=== PATIENT | male | born 1985 | race Caucasian/White ===

== ENCOUNTER 2018-11-12 19:27 | Inpatient (IN) | payer SELFPAY ==
[2018-11-12] MEDS ORDERED: NA CHLORIDE 0.9% 2,000 ML ONE (19:28)
[2018-11-12] MEDS ORDERED: RSI MEDICATION KIT IV ONE (19:28)
[2018-11-12 19:42] LABS: Hematocrit 38.1 % (39.6-49.0); MPV 6.7 fL (7.6-11.3); RBC Red Blood Cell Count 3.91 M/uL (4.33-5.43)
[2018-11-12 19:51] LABS: Absolute Lymphocytes (CBC) 1.8 K/uL (0.7-4.9); Absolute Neutrophil 3.5 K/uL (1.8-8.0); Basophils % 0.6 % (0-1.3); Eosinophils % 2.4 % (0-4.4); Lymphocytes % 27.5 % (15.3-44.8); Monocytes % 15.4 % (3.3-12.3)
[2018-11-12 19:56] LABS: Potassium 3.7 mmol/L (3.5-5.1)
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
[2018-11-12] MEDS ORDERED: TETANUS & DIPHTHERIA TOX,ADULT 0.5 ML VIAL ONE (20:27)
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
[2018-11-12] MEDS ORDERED: MORPHINE 4 MG/ML SYR ONE (21:25)
[2018-11-12] MEDS ORDERED: CEFAZOLIN 2GM (PREMIX IV) 2 GM/50 ML BAG ONE (22:03)
[2018-11-12] MEDS: NA CHLORIDE 0.9% 1,000 ML IV SCH (22:42)
[2018-11-12] MEDS ORDERED: ACETAMINOPHEN 500 MG TAB PO PRN (22:42)
[2018-11-12] MEDS ORDERED: ONDANSETRON 4 MG/2 ML VIAL IV PRN (22:42)
[2018-11-12 23:46] VITALS: BMI 21.1
[2018-11-13] MEDS: MORPHINE 4 MG/ML SYR IV PRN ×5 (00:18→21:18)
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
[2018-11-13 05:44] LABS: Absolute Monocytes 1.2 K/uL (0.1-1.3); Absolute Neutrophil 9.1 K/uL (1.8-8.0); Basophils % 0.3 % (0-1.3); Eosinophils % 0.2 % (0-4.4); Hematocrit 37.3 % (39.6-49.0); Lymphocytes % 9.1 % (15.3-44.8); MPV 6.9 fL (7.6-11.3); Monocytes % 10.3 % (3.3-12.3)
[2018-11-13 05:59] LABS: BUN Blood Urea Nitrogen 15 mg/dL (7-18); Bicarbonate 25 mmol/L (21-32); Glucose Level 99 mg/dL (74-106); Potassium 3.9 mmol/L (3.5-5.1); Sodium Level 135 mmol/L (136-145)
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
[2018-11-13] MEDS ORDERED: INFLUENZA VACCINE (for 3y+) 0.5 ML DOSE IMVAC ONE (08:00)
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
[2018-11-13] MEDS: NA CHLORIDE 0.9% 1,000 ML IV SCH ×2 (12:49→18:42)
[2018-11-14] MEDS: NA CHLORIDE 0.9% 1,000 ML IV SCH ×3 (01:45→22:07)
[2018-11-14] MEDS: MORPHINE 4 MG/ML SYR IV PRN ×3 (09:21→23:30)
--- NOTE | 2018-11-14 12:38 | RAD REPORT ---
EXAM DESCRIPTION: RAD - Chest Single View - 11/14/2018 12:28 pm CLINICAL HISTORY: chest tube/pneumothorax Chest pain. COMPARISON: Chest Single View dated 11/13/2018; Chest Single View dated 11/12/2018; Chest Single Vie w dated 11/12/2018; CHEST PA AND LAT 2 VIEW dated 10/25/2015 FINDINGS: Portable technique limits examination quality. Left-sided chest tube remains in place. No measurable pneumothorax is present. The lungs are grossly clear. The heart is normal in size.
--- NOTE | 2018-11-14 13:37 | RAD REPORT ---
EXAM DESCRIPTION: RAD - Chest Single View - 11/14/2018 1:32 pm CLINICAL HISTORY: s/p chest tube removal Chest pain. COMPARISON: Chest Single View dated 11/14/2018; Chest Single View dated 11/13/2018; Chest Single Vie w dated 11/12/2018; Chest Single View dated 11/12/2018 FINDINGS: Portable technique limits examination quality. The left chest tube has been removed. No measurable pneumothorax is seen. The heart is normal in size . No displaced fractures. IMPRESSION: No measurable pneumothorax.
--- NOTE | 2018-11-14 15:40 | RAD REPORT ---
[facility] 3[facility]15 pm CLINICAL HISTORY: Chest pain COMPARISON: November 14 FINDINGS: Area of subsegmental axis present within the left lung. A pneumothorax is not seen. The lungs appear clear of acute infiltrate. The heart is normal size
[2018-11-14 18:31] LABS: Barbiturates NEGATIVE (NEGATIVE); Benzodiazepines POSITIVE (NEGATIVE); Cocaine NEGATIVE (NEGATIVE); METHAMPHETAM NEGATIVE (NEGATIVE); Methadone NEGATIVE (NEGATIVE); Opiates POSITIVE (NEGATIVE); Phencyclidine NEGATIVE (NEGATIVE); THC Cannibis NEGATIVE (NEGATIVE)
[2018-11-15] MEDS: NA CHLORIDE 0.9% 1,000 ML IV SCH (07:05)
[2018-11-15 08:24] VITALS: O2SAT 95
--- NOTE | 2018-11-15 08:43 | RAD REPORT ---
EXAM DESCRIPTION: [facility] Single View11/15/2018 8:10 am CLINICAL HISTORY: Chest pain COMPARISON: November 22, 2018 FINDINGS: The lungs appear clear of acute infiltrate. The heart is normal size. A pneumothorax is n ot seen IMPRESSION: No acute abnormalities displayed
[2018-11-15] MEDS: MORPHINE 4 MG/ML SYR IV PRN (09:07)
[2018-11-15 13:29] VITALS: BP 114/63; TEMP 98.2
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
== END 2018-11-15 13:01 | disposition left against medical advice (07) | DRG 581 ==
LOC: ER 19:27 → ERHOLD 21:26 → 2ND 22:19
PROVIDERS: ADMIT Surgery; ATTEND Surgery
PROC: 0JQ80ZZ Repair Abdomen Subcutaneous Tissue and Fascia, Open Approach (ICD-10-PCS; principal; 2018-11-12)
PROC: 0JQF0ZZ Repair Left Upper Arm Subcutaneous Tissue and Fascia, Open Approach (ICD-10-PCS; 2018-11-12)
PROC: 0W9B00Z Drainage of Left Pleural Cavity with Drainage Device, Open Approach (ICD-10-PCS; 2018-11-12)
DX: S21.112A Laceration without foreign body of left front wall of thorax without penetration into thoracic cavity, initial encounter (principal); S27.2XXA Traumatic hemopneumothorax, initial encounter; S27.9XXA Injury of unspecified intrathoracic organ, initial encounter; S41.012A Laceration without foreign body of left shoulder, initial encounter; S31.119A Laceration without foreign body of abdominal wall, unspecified quadrant without penetration into peritoneal cavity, initial encounter; X99.1XXA Assault by knife, initial encounter; Y93.9 Activity, unspecified; Y92.9 Unspecified place or not applicable
CPT/HCPCS: 36415; 71045; 71260; 74177; 80048; 80307; 85025; 86850; 86900; 86901; 90714; 99291; J0690; J7030; Q9967

== ENCOUNTER 2019-01-09 17:48 | Emergency (ER) | payer SELFPAY ==
[2019-01-09 19:12] LABS: Absolute Lymphocytes (CBC) 2.2 K/uL (0.7-4.9); Absolute Monocytes 0.9 K/uL (0.1-1.3); Absolute Neutrophil 10.1 K/uL (1.8-8.0); Basophils % 0.4 % (0-1.3); Eosinophils % 0.3 % (0-4.4); Hematocrit 47.9 % (39.6-49.0); Lymphocytes % 16.3 % (15.3-44.8); MPV 6.7 fL (7.6-11.3); Monocytes % 6.8 % (3.3-12.3); RBC Red Blood Cell Count 5.02 M/uL (4.33-5.43)
[2019-01-09 19:13] LABS: Barbiturates NEGATIVE (NEGATIVE); Benzodiazepines NEGATIVE (NEGATIVE); Cocaine NEGATIVE (NEGATIVE); METHAMPHETAM NEGATIVE (NEGATIVE); Methadone NEGATIVE (NEGATIVE); Opiates NEGATIVE (NEGATIVE); Phencyclidine NEGATIVE (NEGATIVE); THC Cannibis NEGATIVE (NEGATIVE)
[2019-01-09 19:16] LABS: Protime INR 1.03
[2019-01-09 19:20] LABS: ALT/SGPT 25 U/L (12-78); AST/SGOT 24 U/L (15-37); Albumin 4.4 g/dL (3.4-5.0); Alkaline Phosphatase 73 U/L (45-117); BUN Blood Urea Nitrogen 20 mg/dL (7-18); Bicarbonate 27 mmol/L (21-32); Bilirubin Direct 0.1 mg/dL (0-0.2); Bilirubin Total 0.4 mg/dL (0.2-1.0); Glucose Level 102 mg/dL (74-106); Potassium 3.9 mmol/L (3.5-5.1); Protein, Total 8.2 g/dL (6.4-8.2); Sodium Level 138 mmol/L (136-145)
[2019-01-09 19:40] LABS: Urine Blood TRACE (NEG); Urine Glucose NEGATIVE (NEG); Urine Protein 1+ (NEG); Urine Specific Gravity 1.025 (1.005-1.030)
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
== END 2019-01-09 20:22 | disposition home or self-care (01) ==
LOC: ER 17:48
DX: F43.21 Adjustment disorder with depressed mood (principal); F17.210 Nicotine dependence, cigarettes, uncomplicated
CPT/HCPCS: 36415; 80048; 80076; 80307; 80320; 80329; 81003; 85025; 85610; 85730; 99283

== ENCOUNTER 2019-04-11 13:20 | Emergency (ER) | payer SELFPAY ==
[2019-04-11] MEDS ORDERED: NA CHLORIDE 0.9% 0 ML ONE (15:39)
[2019-04-11] MEDS ORDERED: ONDANSETRON 4 MG/2 ML VIAL ONE (15:39)
--- NOTE | 2019-04-11 15:43 | ER ---
Nurse's Notes [facility] Name: Ky Casarez Age: 33 yrs Sex: Male : 1985 Arrival Date: 04/11/2019 Time: 13:23 Bed 11 Private MD: Diagnosis: Vomiting;Headache;Unspecified injury of head Presentation: 04/11 13:42 Presenting complaint: Patient states: cutting down a tree 3 days ago when it fell on ss his head. Pt was seen at [facility] yesterday and had a negative head CT. Pt c/o headache, N/V x 3 days that has not gotten any better. Transition of care: patient was not received from another setting of care. Onset of symptoms was April 08, 2019. Risk Assessment: Do you want to hurt yourself or someone else? Patient reports no desire to harm self or others. Initial Sepsis Screen: Does the patient meet any 2 criteria? No. Patient's initial sepsis screen is negative. Does the patient have a suspected source of infection? No. Patient's initial sepsis screen is negative. Care prior to arrival: None. 13:42 Method Of Arrival: Ambulatory ss 13:42 Acuity: CLEMENTINE 4 ss Historical: - Allergies: 13:44 No Known Allergies; ss - Immunization history:: Adult Immunizations up to date. - Social history:: Smoking status: Patient uses tobacco products, smokes two packs cigarettes per day. - Ebola Screening: : Patient denies exposure to infectious person Patient denies travel to an Ebola-affected area in the 21 days before illness onset. Screenin:50 Abuse screen: Denies threats or abuse. Denies injuries from another. Nutritional sg screening: No deficits noted. Tuberculosis screening: No symptoms or risk factors identified. Never had TB. Fall Risk None identified. Assessment: 13:36 Reassessment: called to TRIAGE no answer. ss 14:52 General: Appears in no apparent distress. comfortable, well groomed, well developed, sg well nourished, Behavior is calm, cooperative, appropriate for age. Pain: Denies pain. Neuro: Level of Consciousness is awake, alert, obeys commands, Oriented to person, place, time, situation, Biofuels Research Scientist are equal bilaterally Moves all extremities. Full function Gait is steady, Speech is normal, Facial symmetry appears normal, Pupils are PERRLA. Cardiovascular: Capillary refill is brisk in bilateral fingers Patient's skin is warm and dry. Chest pain is denied. Respiratory: Airway is patent Respiratory effort is even, unlabored, Respiratory pattern is regular, symmetrical, Breath sounds are clear bilaterally. GI: Abdomen is round non-distended, Reports nausea, tolerance of fluids, tolerance of food. : No signs and/or symptoms were reported regarding the genitourinary system. EENT: No signs and/or symptoms were reported regarding the EENT system. Derm: Skin is pink, warm \\T\\ dry. Musculoskeletal: Circulation, motion, and sensation intact. Range of motion: intact in all extremities, Swelling absent. 15:29 Reassessment: pt reports " i dont want the blood work or the IV." Holger MITTAL notified. 15:45 Reassessment: upon leaving the department, pt reports he was seen and given zofran at health system, reports the medication made the nausea much worse, requesting a different medication for at home use, Gabrielle NATURAL HISTORY COLLECTIONS CURATOR notified, a prescription for Phenergan has been written, pt stated understanding. Vital Signs: 13:44 BP 131 / 79; Pulse 79; Resp 16; Temp 97.8(O); Pulse Ox 98% on R/A; Weight 68.95 kg; ss Height 5 ft. 10 in. (177.80 cm); Pain 8/10; 15:00 BP 122 / 70; Pulse 77; Resp 17; Pulse Ox 99% on R/A; Pain 6/10; sg 13:44 Body Mass Index 21.81 (68.95 kg, 177.80 cm) Jeanine Coma Score: 14:20 Eye Response: spontaneous(4). Verbal Response: oriented(5). Motor Response: obeys sg commands(6). Total: 15. 15:00 Eye Response: spontaneous(4). Verbal Response: oriented(5). Motor Response: obeys sg commands(6). Total: 15. Trauma Score (Adult): 14:20 Eye Response: spontaneous(1); Verbal Response: oriented(1); Motor Response: obeys sg commands(2); Systolic BP: > 89 mm Hg(4); Respiratory Rate: 10 to 29 per min(4); Jeanine Score: 15; Trauma Score: 12 ED Course: 13:23 Patient arrived in ED. as 13:44 Triage completed. ss 13:44 Arm band placed on right wrist. ss 15:00 No provider procedures requiring assistance completed. Patient did not have IV access sg during this emergency room visit. 15:08 Holger Toledo, KYRIE is PHCP. pm1 15:09 Vincenzo Drake MD is Attending Physician. pm1 15:24 Patient moved to [place]. jj2 15:29 Shubham Mendez, RN is Primary Nurse. sg 15:45 Patient has correct armband on for positive identification. Adult w/ patient. Pulse ox sg on. NIBP on. 15:49 Primary Nurse role handed off by Shubham Mendez, ALFRED stein Administered Medications: No medications were administered Outcome: 15:42 Discharge ordered by . pm1 15:45 Discharged to home ambulatory, with family, with friend. sg 15:45 Condition: good 15:45 Discharge instructions given to patient, Instructed on discharge instructions, follow up and referral plans. no drinking with medication, no driving heavy equipment, medication usage, safety practices, Demonstrated understanding of instructions, follow-up care, medications, Prescriptions given X 1. 15:47 Patient left the ED. dm5 15:50 Patient left the ED. sarita Signatures: Elif Banks, RN RN dm5 Shubham Mendez, RN RN Sumanth Greene PA PA jmm Jaramillo, Justin jj2 Martinez, Amelia as Smirch, Shelby, RN RN ss Holger Toledo NP GRINDER SET UP OPERATOR THREAD TOOL pm1
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
[2019-04-11 16:06] VITALS: BP 131/79; TEMP 97.8; O2SAT 98
== END 2019-04-11 15:50 | disposition home or self-care (01) ==
LOC: ER 13:20
DX: S09.90XA Unspecified injury of head, initial encounter (principal); R51 Headache; W22.8XXA Striking against or struck by other objects, initial encounter; Y93.89 Activity, other specified; Y92.9 Unspecified place or not applicable; F17.210 Nicotine dependence, cigarettes, uncomplicated
CPT/HCPCS: 99284; J2405; J7030

== ENCOUNTER 2019-05-13 16:36 | Emergency (ER) | payer SELFPAY ==
--- OUTSIDE RECORDS SUMMARY | 2019-05-13 16:38 | XMS REPORT | Continuity of Care Document ---
:1985 Author Organization [facility] Care Team Providers Name Role Phone OCTAVIO GARCIA Admitting Physician OCTAVIO GARCIA Attending Physician Hospital Admission Diagnosis No data in the System Social History Element Description Code Description Smoking Status Code Start Date End Date System Smoking Status [id number] Never smoker SNOMED-CT Problems No data in the system Medications SNOMED CT Description [id number] Drug Treatment Unknown Allergies No Allergy Data in the System Results Radiology Results Order: [id number] CT HEAD W/O CONTRASTExam Completion Date:05/10/2019 14:22Procedure: CT HEAD W/O CONTRAST Order date: 05/10/2019 2:22 PMOrdering Provider: OCTAVIO BONDlinical Indication : Headache after injuryComparison: NoneTechnique: Using a helical scanner, sequential axial imaging of the brain wasobtained without the administration of intravenous contrast. The exam wasobtained from the skull base to vertex.This exam was performed according to the our departmental dose-optimizationprogram which includes automated exposure control, adjustment of the mA and/orkV according to patient size and/or use of iterative reconstruction techniques.Findings: Normal-appearing tafoya and white matter with appropriate sulcation and normalparenchymal volume. There is nomidline shift or hydrocephalus.There is no acute intracranial hemorrhage or mass effect. There is noCT evidence for acute cortical infarct.Asymmetric soft tissue swelling about the right parietal and temporal scalp.Seen within the inferior right parietal bone, there is a subtle linear lucencysuggestive of a nondisplaced laced or depressed skull fracture.There is no lytic or sclerotic lesion.The visualized paranasal sinuses and mastoid air cells are clear.IMPRESSION: 1. Right temporoparietal soft tissue swelling with subtle lucency seen withinthe right parietal bone suggestive of a nondepressed or displaced hairlinefracture.2. No acute intracranial process.This final report was electronically signed by Dr Erik Whitfield MD 05/10/20192:53 PMDictated By: ERIK WHITFIELDDate: 05/10/2019 14:53 Vital Signs Vitals Value Date Body Temperature 97.5 F 05/10/2019 Respiratory Rate 19 (breaths)/min 05/10/2019 Height 67 in 05/10/2019 Weight Measured 128.52 lbs 05/10/2019 BSA (Body Surface Area) 1.53030 m2 05/10/2019 BMI (Body Mass Index) 20.1 kg/m2 05/10/2019 Pulse Rate 72 (beats)/min 05/10/2019 O2% BldC Oximetry 100 % 05/10/2019 BP Systolic 143 mmHg 05/10/2019 BP Diastolic 78 mmHg 05/10/2019 Advance Directives Patient does NOT have Living Will Directive Type Effective Date Credit Card Associate Notes Supporting Document Name Address Phone No Directive Type 05/10/2019 14:32 Not Specified Not Specified Not Specified None No specified Family History No Data Reported Plan of Care No data in the system Procedures Code Code System Procedure Name Target Site Date of Procedure CT HEAD W/O CONTRAST 05/10/2019 15:00 Encounters No data in the system Immunizations No data in the system Functional Status No data in the system Hospital Discharge Instructions No data in the system
--- OUTSIDE RECORDS SUMMARY | 2019-05-13 16:38 | XMS REPORT ---
:1985 [facility] [address] [place] [address] Dr. Lui [address] [place] [id number] Care Team Providers Name Role Phone OCTAVIO GARCIA Unavailable Unavailable Problems This patient has no known problems. Allergies, Adverse Reactions, Alerts This patient has no known allergies or adverse reactions. Medications This patient has no known medications. Results Test Description Test Time Test Comments Text Results Atomic Results Result Comments CT HEAD W/O 2019-05-10 er 4 Procedure: CT HEAD W/O CONTRASTOrder date: CONTRAST 15:00:08 05/10/2019 2:22 PMOrdering Provider: OCTAVIO GARCIAClinical Indication: Headache after injuryComparison: NoneTechnique: Using a helical scanner, sequential axial imaging of the brain wasobtained without the administration of intravenous contrast. The exam wasobtained from the skull base to vertex.This exam was performed according to the our departmental dose-optimizationprogram which includes automated exposure control, adjustment of the mA and/orkV according to patient size and/or use of iterative reconstruction techniques.Findings:Normal-appearing tafoya and white matter with appropriate sulcation and normalparenchymal volume.There is no midline shift or hydrocephalus.There is no acute intracranial hemorrhage or mass effect.There is no CT evidence for acute cortical infarct.Asymmetric soft tissue swelling about the right parietal and temporal scalp.Seen within the inferior right parietal bone, there is a subtle linear lucencysuggestive of a nondisplaced laced or depressed skull fracture.There is no lytic or sclerotic lesion.The visualized paranasal sinuses and mastoid air cells are clear.IMPRESSION:1. Right temporoparietal soft tissue swelling with subtle lucency seen withinthe right parietal bone suggestive of a nondepressed or displaced hairlinefracture.2. No acute intracranial process.This final report was electronically signed by Dr Shahriar Whitfield MD 05/10/20192:53 PMDictated By: SHAHRIAR WHITFIELDDate: 05/10/2019 14:53
--- NOTE | 2019-05-13 17:08 | EDPHYS ---
Physician Documentation [facility] Name: Ky Casarez Age: 33 yrs Sex: Male : 1985 Arrival Date: 05/13/2019 Time: 16:40 Bed 15 Private MD: ED Physician Arden Simmons HPI: 05/13 17:03 This 33 yrs old Male presents to ER via Unassigned with complaints of Psych liya Problem. 17:03 The patient presents to the emergency department with depression, suicide ideation, but liya the patient has no formulated plan, resolved, occurred while being arrested. Onset: The symptoms/episode began/occurred just prior to arrival. Past psychiatric history: Prior diagnosis: depression. Associated signs and symptoms: The patient has no apparent associated signs or symptoms. The patient has not experienced similar symptoms in the past. Historical: - Allergies: 16:51 No Known Drug Allergies; tw2 - Home Meds: 16:51 None [Active]; tw2 - Immunization history:: Adult Immunizations. - Social history:: Smoking status: . - Ebola Screening: : Patient denies travel to an Ebola-affected area in the 21 days before illness onset. ROS: 17:04 Constitutional: Negative for fever, chills, and weight loss, Eyes: Negative for injury, liya pain, redness, and discharge, ENT: Negative for injury, pain, and discharge, Neck: Negative for injury, pain, and swelling, Cardiovascular: Negative for chest pain, palpitations, and edema, Respiratory: Negative for shortness of breath, cough, wheezing, and pleuritic chest pain, Abdomen/GI: Negative for abdominal pain, nausea, vomiting, diarrhea, and constipation, Back: Negative for injury and pain, : Negative for injury, bleeding, discharge, and swelling, MS/Extremity: Negative for injury and deformity, Skin: Negative for injury, rash, and discoloration, Neuro: Negative for headache, weakness, numbness, tingling, and seizure, Allergy/Immunology: Negative for hives, rash, and allergies, Endocrine: Negative for neck swelling, polydipsia, polyuria, polyphagia, and marked weight changes, Hematologic/Lymphatic: Negative for swollen nodes, abnormal bleeding, and unusual bruising. 17:04 Psych: Positive for suicidal ideation, upon being arrested. Exam: 17:04 Constitutional: This is a well developed, well nourished patient who is awake, alert, liya and in no acute distress. Head/Face: Normocephalic, atraumatic. Eyes: Pupils equal round and reactive to light, extra-ocular motions intact. Lids and lashes normal. Conjunctiva and sclera are non-icteric and not injected. Cornea within normal limits. Periorbital areas with no swelling, redness, or edema. ENT: Nares patent. No nasal discharge, no septal abnormalities noted. Tympanic membranes are normal and external auditory canals are clear. Oropharynx with no redness, swelling, or masses, exudates, or evidence of obstruction, uvula midline. Mucous membranes moist. Neck: Trachea midline, no thyromegaly or masses palpated, and no cervical lymphadenopathy. Supple, full range of motion without nuchal rigidity, or vertebral point tenderness. No Meningismus. Chest/axilla: Normal chest wall appearance and motion. Nontender with no deformity. No lesions are appreciated. Cardiovascular: Regular rate and rhythm with a normal S1 and S2. No gallops, murmurs, or rubs. Normal PMI, no JVD. No pulse deficits. Respiratory: Lungs have equal breath sounds bilaterally, clear to auscultation and percussion. No rales, rhonchi or wheezes noted. No increased work of breathing, no retractions or nasal flaring. Abdomen/GI: Soft, non-tender, with normal bowel sounds. No distension or tympany. No guarding or rebound. No evidence of tenderness throughout. Back: No spinal tenderness. No costovertebral tenderness. Full range of motion. Male : Normal genitalia with no discharge or lesions. Skin: Warm, dry with normal turgor. Normal color with no rashes, no lesions, and no evidence of cellulitis. MS/ Extremity: Pulses equal, no cyanosis. Neurovascular intact. Full, normal range of motion. Neuro: Awake and alert, GCS 15, oriented to person, place, time, and situation. Cranial nerves II-XII grossly intact. Motor strength 5/5 in all extremities. Sensory grossly intact. Cerebellar exam normal. Normal gait. 17:04 Psych: Behavior/mood is pleasant, cooperative, Affect is calm, Oriented to person, place, time, Patient has no thoughts/intents to harm self or others. Judgement / Insight is normal. Delusions/hallucinations are not present. not suicidal, no homicidal. Vital Signs: 17:01 BP 121 / 86; Pulse 78; Resp 16; Temp 98.6(O); Pulse Ox 99% ; Weight 65.77 kg; Height 5 ls4 ft. 10 in. (177.80 cm); Pain 0/10; 17:01 Body Mass Index 20.81 (65.77 kg, 177.80 cm) ls4 MDM: 16:42 Patient medically screened. [facility] 17:06 Data reviewed: vital signs, nurses notes. [facility] Administered Medications: No medications were administered Disposition: 05/13/19 17:07 Discharged to Home. Impression: Suicidal ideations. - Condition is Stable. - Discharge Instructions: Suicidal Feelings: How to Help Yourself, Helping Someone Who is Suicidal, Stress and Stress Management. - Medication Reconciliation Form, Thank You Letter, Antibiotic Education, Prescription Opioid Use form. - Follow up: Private Physician; When: 2 - 3 days; Reason: Recheck today's complaints, Continuance of care, Re-evaluation by your physician. - Problem is new. - Symptoms have improved. Signatures: Arden Simmons MD MD cha Wise, Tara, RN RN tw2 Mohini Chavez, RN RN ls4 Corrections: (The following items were deleted from the chart) 17:23 17:07 05/13/2019 17:07 Discharged to Home. Impression: Suicidal ideations. Condition is ls4 Stable. Forms are Medication Reconciliation Form, Thank You Letter, Antibiotic Education, Prescription Opioid Use. Follow up: Private Physician; When: 2 - 3 days; Reason: Recheck today's complaints, Continuance of care, Re-evaluation by your physician. Problem is new. Symptoms have improved. [facility]
--- NOTE | 2019-05-13 17:08 | ER ---
Nurse's Notes [facility] Name: Ky Casarez Age: 33 yrs Sex: Male : 1985 Arrival Date: 05/13/2019 Time: 16:40 Bed 15 Private MD: Diagnosis: Suicidal ideations Presentation: 05/13 17:01 Presenting complaint: was called to seen when pt was getting arrested on warrants and ls4 pt stated he wanted to "commit suicide". Transition of care: patient was not received from another setting of care. Onset of symptoms was May 13, 2019. Risk Assessment: Do you want to hurt yourself or someone else? Patient reports no desire to harm self or others. Initial Sepsis Screen: Does the patient meet any 2 criteria? No. Patient's initial sepsis screen is negative. Does the patient have a suspected source of infection? No. Patient's initial sepsis screen is negative. Care prior to arrival: None. 17:01 Method Of Arrival: EMS: [facility] ls4 17:01 Acuity: CLEMENTINE 3 ls4 Triage Assessment: 17:01 General: Appears in no apparent distress. Behavior is calm, anxious, fussy. Pain: ls4 Denies pain. Historical: - Allergies: 16:51 No Known Drug Allergies; tw2 - Home Meds: 16:51 None [Active]; tw2 - Immunization history:: Adult Immunizations. - Social history:: Smoking status: . - Ebola Screening: : Patient denies travel to an Ebola-affected area in the 21 days before illness onset. Screenin:49 Abuse screen: Denies threats or abuse. Nutritional screening: No deficits noted. tw2 Tuberculosis screening: No symptoms or risk factors identified. Fall Risk None identified. Assessment: 16:46 Reassessment: Mental health deputy at bedside, pt uncooperative with getting in pts tw2 gown and allowing vs. Psych: 17:01 Subjective: Patient's mood is angry, irritable, Delusions are denied, Hallucinations ls4 are denied Having thoughts of denies suicidal thoughts, states he didn't want to go to [facility]. Commitment: Pt unwilling to answer questions. 17:01 Objective: Patient is uncooperative, belligerent, hostile, irritable, restless, Speech ls4 is loud, rapid, Affect is appropriate, Patient has mutilated themselves by none. Interventions: pt refused gown. pt refused to cooperate. Suicide Risk Assessment: Sad Person Scale: Sex of patient: Male: Score 1 point. Age of patient: Score 1 point if patient 15-34. Depression: Score 0 point if signs of depression are not present. Previous Attempt: Score 0 point if patient has not previously attempted suicide. Substance Abuse: Score 1 point if patient abuses alcohol or drugs. Rational Thinking: Score 0 point if patient has rational thinking. Social Support: Score 0 if social support is present/available. Organized Plan: Score 0 if patient did not have an organized plan in place. Relationship: Score 0 point if patient has a spouse or domestic partner. Chronic Sickness: Score 0 point if patient does not have a chronic illness, debilitating, or severe disorder. TOTAL POINTS: If total points are 0-2, proposed clinical action is to send home with follow-up. Safety Checks: Safety Checks: Door is open. Patient uses daily. synthetic drugs. Vital Signs: 17:01 BP 121 / 86; Pulse 78; Resp 16; Temp 98.6(O); Pulse Ox 99% ; Weight 65.77 kg; Height 5 ls4 ft. 10 in. (177.80 cm); Pain 0/10; 17:01 Body Mass Index 20.81 (65.77 kg, 177.80 cm) ls4 ED Course: 16:40 Patient arrived in ED. ss 16:42 Arden Simmons MD is Attending Physician. liya 16:51 Arm band placed on pt refused arm id band, Mental Health deputy at bedside still having tw2 a conversation with pt regarding his cooperation. 17:01 Mhoini Chavez, ALFRED is Primary Nurse. 4 17:01 Safety checks: Items removed: Door open/sign placed on door: Family/friend present: no. wj1 Sitter present: Yes. 17:02 Patient has correct armband on for positive identification. pt refuses to cooperate. Dr kurt Simmons notified sitter with pt. 17:05 Triage completed. ls4 17:23 Patient did not have IV access during this emergency room visit. ls4 06 07:14 No provider procedures requiring assistance completed. ls4 Administered Medications: No medications were administered Outcome: 05/13 17:07 Discharge ordered by . [facility] 17:23 Patient left the ED. ls4 17:23 Discharged to home ambulatory. ls4 17:23 Condition: stable 17:23 Discharge instructions given to patient, Instructed on discharge instructions, follow ls4 up and referral plans. safety practices, Demonstrated understanding of instructions, follow-up care. Signatures: Arden Simmons MD MD cha Smirch, Shelby, RN RN ss Lachelle Esteves RN RN tw2 Magda Horn wj1 Mohini Chavez RN RN ls4
[2019-05-13 17:58] VITALS: BP 121/86; TEMP 98.6; O2SAT 99
== END 2019-05-13 17:23 | disposition home or self-care (01) ==
LOC: ER 16:36
DX: R45.851 Suicidal ideations (principal)
CPT/HCPCS: 99284

== ENCOUNTER 2021-07-19 19:20 | Emergency (ER) | payer SELFPAY ==
--- OUTSIDE RECORDS SUMMARY | 2021-07-19 19:23 | XMS REPORT | Continuity of Care Document ---
:1985 Author Organization [facility] Address [address] [place] [address] Care Team Providers Name Role Phone SINAI GARCIA Attending Clinician Unavailable SINAI GARCIA Admitting Clinician Unavailable Problems This patient has no known problems. Allergies, Adverse Reactions, Alerts This patient has no known allergies or adverse reactions. Social History Smoking Status Start Date Stop Date Source Never smoker [facility] (LUF/CHRISTIAN/SA) Medications This patient has no known medications. Vital Signs Vital Name Observation Time Observation Value Comments Source Height 2019-05-10 14:03:00 67 in [facility] (LUF/CHRISTIAN/SA) Weight Measured 2019-05-10 14:03:00 128.52 lbs [facility] S [facility] (LUF/CHRISTIAN/SA) BMI (Body Mass Index) 2019-05-10 14:03:00 20.1 kg/m2 [facility] (LUF/CHRISTIAN/SA) Body Temperature 2019-05-10 14:03:00 97.5 F [facility] (LUF/CHRISTIAN/SA) Respiratory Rate 2019-05-10 14:03:00 19 /min [facility] (LUF/CHRISTIAN/SA) Pulse Rate 2019-05-10 14:00:00 72 /min [facility] (LUF/CHRISTIAN/SA) O2% BldC Oximetry 2019-05-10 14:00:00 100 % [facility] (LUF/CHRISTIAN/SA) BP Systolic 2019-05-10 13:57:00 143 mm[Hg] [facility] (LUF/CHRISTIAN/SA) BP Diastolic 2019-05-10 13:57:00 78 mm[Hg] [facility] (LUF/CHRISTIAN/SA) Procedures This patient has no known procedures. Encounters Start End Encounter Admission Attending Care Care Encounter Source Date/Time Date/Time Type Type Clinicians Facility Department ID 2019-05-10 2019-05-10 UNSPECIFIE 1 RADHA, [place] [id number] [facility] 14:03:00 15:25:00 D OCTAVIO VELASQUEZTER ROBERT LEE N[facility] - [facility] S [address] V[address]SA) [place] [address] Results Test Description Test Time Test Comments Results Result Comments Source RPR Qualitative 2019-12-17 16:25:39 Test Item Value Reference Range Interpretation Comme nts RPR Qual (test code = RPR Qual) Non-Reactive Non-Reactive Reactive Control (test code = Reactive Control) Reactive Weak Reactive Control (test code = Weak Reactive Weak Reactive Control) Non-Reactive Control (test code = Non-Reactive Non-Reactive Control) Lot # (test code = Lot #) [id number] N Expiration Dt (test code = Expiration Dt) 09-25-2020 N Thyroid Stimulating [id number] 14:11:23 Test Item Value Reference Range Interpretation Comments TSH (test code = TSH) 0.301 mIU/mL 0.270-4.200 Lipid [id number] 14:01:41 Test Item Value Reference Range Interpretation Comments Cholesterol Total 207 mg/dL 0-200 H RISK OF HE ART (test code = DISEASEPublishe d by Cholesterol Total) [place] [employer] Rolanda lyte Optimal Borderl ine Increased RiskC HOL <200 200-239 >2 40TRIG <150 150-199 >2 00HDL Male >60 <40H DL Female >60 <5 0LDL <100 130-159 >1 60LDL Near optimal is 100-129 Triglycerides (test 85 mg/dL 9-200 code = Triglycerides) HDL (test code = HDL) 50 mg/dL 40-60 LDL (test code = LDL) 140 mg/dL 0-130 H The eq uation being used in this calcula tion is LDL = (Chol - H DL) - (Trig / 5) VLDL (test code = 17 mg/dL 5-40 The equati on being used VLDL) in this calcula tion is VLDL = Trig / 5 Chol/HDL (test code = 4.1 ratio 0.0-5.0 Chol/HDL) LDL/HDL Ratio (test 3 N The equa tion being used code = LDL/HDL Ratio) in thi s calculation is LDL/HDL Ratio=L DL Calc/HDL Chol IG [id number] 13:18:29 Test Item Value Reference Range Interpretation Comments IG (test code = IG) 0.5 % 0.0-5.0 IG Abs (test code = IG Abs) 0 x10 N Complete Blood Count with [id number] 13:18:28 Test Item Value Reference Range Interpretation Comments WBC (test code = WBC) 11.1 x10 4.4-10.5 H RBC (test code = RBC) 4.89 x10 4.10-5.70 Hgb (test code = Hgb) 15.2 g/dL 13.4-17.4 Hct (test code = Hct) 46.4 % 38.7-52.0 MCV (test code = MCV) 94.90 fL 80.00-100.00 MCHC (test code = 32.80 g/dL 32.00-37.50 MCHC) MCH (test code = MCH) 31.1 pg 27.0-32.5 RDW CV (test code = 12.9 % 11.5-14.5 RDW CV) Platelets (test code = 459.0 x10 140.0-440.0 H Platelets) MPV (test code = MPV) 8.8 fL N Slide Review (test Auto Auto Result cr eated by code = Slide Review) GL_SJM_ SLIDE_REV_AUTO nRBC (test code = 0 N nRBC) NRBC Abs (test code = 0.00 x10 N NRBC Abs) IPF (test code = IPF) 0 % N Automated [id number] 13:18:28 Test Item Value Reference Range Interpretation Comments Neutro Auto (test code = Neutro 76.8 % 36.0-70.0 H Auto) Lymph Auto (test code = Lymph Auto) 12.6 % 12.0-44.0 [place] Auto (test code = [place] Auto) 9.5 % 0.0-11.0 Eos, Auto (test code = Eos, Auto) 0.3 % 0.0-7.0 Basophil Auto (test code = Basophil 0.3 % 0.0-2.0 Auto) Neutro Absolute (test code = Neutro 8.5 x10 1.6-7.4 H Absolute) Lymph Absolute (test code = Lymph 1.40 x10 .50-4.60 Absolute) [place] Absolute (test code = [place] 1.05 x10 .00-1.20 Absolute) Eos Absolute (test code = Eos 0.03 x10 0.00-0.74 Absolute) Baso Absolute (test code = Baso 0.03 x10 0.00-0.21 Absolute) Urine Drug [id number] 13:04:00 Test Item Value Reference Range Interpretation Comments Amphetamine Screen Ur Negative Negative (test code = Amphetamine Screen Ur) Barbiturate Screen Ur Negative Negative (test code = Barbiturate Screen Ur) Benzodiazepines Ur (test Negative Negative code = Benzodiazepines Ur) Cocaine Screen Ur (test Negative Negative code = Cocaine Screen Ur) U Methadone Scr (test Negative Negative code = U Methadone Scr) Opiate Screen Ur (test Negative Negative code = Opiate Screen Ur) U PCP Scrn (test code = Negative Negative U PCP Scrn) Cannabinoid Screen Ur Negative Negative (test code = Cannabinoid Screen Ur) U TCA (test code = U Negative Negative The res ults of all TCA) drug screen lourdes ts are only preliminar y. Clinical consideration a nd professional ju dgment should be appli ed to any drug of abu se test result, particularly wh en preliminary pos itive results are obt ained. Please order a separate confir matory test if desired . Comprehensive Metabolic [id number] 13:01:31 Test Item Value Reference Range Interpretation Comments Sodium Level (test code = Sodium 137.0 mmol/L 135.0-145.0 Level) Potassium Level (test code = 4.1 mmol/L 3.5-5.1 Potassium Level) Chloride Level (test code = 96 mmol/L 98-105 L Chloride Level) CO2 (test code = CO2) 26 mmol/L 22-29 Anion Gap (test code = Anion 15 mmol/L 7-16 Gap) BUN (test code = BUN) 22.70 mg/dL 6.00-20.00 H Creatinine Level (test code = 1.00 mg/dL 0.70-1.20 Creatinine Level) BUN/Creat Ratio (test code = 23 N BUN/Creat Ratio) Glucose Level (test code = 91 mg/dL 70-115 Glucose Level) Calcium Level (test code = 10.1 mg/dL 8.3-10.5 Calcium Level) Alk Phos (test code = Alk Phos) 76 U/L 40-129 Bilirubin Total (test code = 0.6 mg/dL 0.1-0.9 Bilirubin Total) Albumin Level (test code = 5.2 g/dL 3.5-5.2 Albumin Level) Protein Total (test code = 7.8 g/dL 6.4-8.3 Protein Total) ALT (test code = ALT) 13 U/L 1-41 AST (test code = AST) 22 U/L 1-40 Globulin (test code = Globulin) 2.6 g/dL 2.9-3.1 L A/G Ratio (test code = A/G 2.0 ratio N Ratio) Comprehensive Metabolic [id number] 13:01:31 Test Item Value Reference Range Interpretation Comments Sodium Level (test 137.0 mmol/L 135.0-145.0 code = Sodium Level) Potassium Level 4.1 mmol/L 3.5-5.1 (test code = Potassium Level) Chloride Level (test 96 mmol/L 98-105 L code = Chloride Level) CO2 (test code = 26 mmol/L 22-29 CO2) Anion Gap (test code 15 mmol/L 7-16 = Anion Gap) BUN (test code = 22.70 mg/dL 6.00-20.00 H BUN) Creatinine Level 1.00 mg/dL 0.70-1.20 (test code = Creatinine Level) BUN/Creat Ratio 23 N (test code = BUN/Creat Ratio) Glucose Level (test 91 mg/dL 70-115 code = Glucose Level) Calcium Level (test 10.1 mg/dL 8.3-10.5 code = Calcium Level) Alk Phos (test code 76 U/L 40-129 = Alk Phos) Bilirubin Total 0.6 mg/dL 0.1-0.9 (test code = Bilirubin Total) Albumin Level (test 5.2 g/dL 3.5-5.2 code = Albumin Level) Protein Total (test 7.8 g/dL 6.4-8.3 code = Protein Total) ALT (test code = 13 U/L 1-41 ALT) AST (test code = 22 U/L 1-40 AST) Globulin (test code 2.6 g/dL 2.9-3.1 L = Globulin) A/G Ratio (test code 2.0 ratio N = A/G Ratio) eGFR AA (test code = >60 N eGFR (e stimated eGFR AA) mL/min/1.73 m2 Glomerular Filtration Rate ) is an estimated va lue, calculated from the patient's serum creatinine usin g the MDRD equation. It is NOT the patient 's actual GFR. The eGFR provides a more clinically usef ul measure of kidn ey disease than se rum creatinine alone.This calculation george es sex and race in to account, if the information is provided. If th e race is not provided, and t he patient is -Angie n, multiply by 1.2 12. If sex is not provided, and t he patient is fema le, multiply by 0.7 42. Results for pat ients <18 years of ag e have not been validated by th e MDRD study and should be interpreted wit h caution. eGFR R esult Interpretation: eGFR > or = 60 is in the Normal RangeeGF R < 60 may mean kid [place] diseaseeGFR < 1 5 may mean kidney failure Rang es recommended by the National Kidney Foundation, http://nkdep.ni h.gov Alcohol [id number] 13:01:31 Test Item Value Reference Range Interpretation Comments Ethanol Level (test <0.00 g/dL 0.00-0.01 Intoxica radha 0.080 g/dL code = Ethanol or more Level) Ethanol Inst (test <0 N code = Ethanol Inst) Comprehensive Metabolic [id number] 13:01:31 Test Item Value Reference Range Interpretation Comments Sodium Level (test 137.0 mmol/L 135.0-145.0 code = Sodium Level) Potassium Level 4.1 mmol/L 3.5-5.1 (test code = Potassium Level) Chloride Level (test 96 mmol/L 98-105 L code = Chloride Level) CO2 (test code = 26 mmol/L 22-29 CO2) Anion Gap (test code 15 mmol/L 7-16 = Anion Gap) BUN (test code = 22.70 mg/dL 6.00-20.00 H BUN) Creatinine Level 1.00 mg/dL 0.70-1.20 (test code = Creatinine Level) BUN/Creat Ratio 23 N (test code = BUN/Creat Ratio) Glucose Level (test 91 mg/dL 70-115 code = Glucose Level) Calcium Level (test 10.1 mg/dL 8.3-10.5 code = Calcium Level) Alk Phos (test code 76 U/L 40-129 = Alk Phos) Bilirubin Total 0.6 mg/dL 0.1-0.9 (test code = Bilirubin Total) Albumin Level (test 5.2 g/dL 3.5-5.2 code = Albumin Level) Protein Total (test 7.8 g/dL 6.4-8.3 code = Protein Total) ALT (test code = 13 U/L 1-41 ALT) AST (test code = 22 U/L 1-40 AST) Globulin (test code 2.6 g/dL 2.9-3.1 L = Globulin) A/G Ratio (test code 2.0 ratio N = A/G Ratio) eGFR AA (test code = >60 N eGFR (e stimated eGFR AA) mL/min/1.73 m2 Glomerular Filtration Rate ) is an estimated va lue, calculated from the patient's serum creatinine usin g the MDRD equation. It is NOT the patient 's actual GFR. The eGFR provides a more clinically usef ul measure of kidn ey disease than se rum creatinine alone.This calculation george es sex and race in to account, if the information is provided. If th e race is not provided, and t he patient is -Angie n, multiply by 1.2 12. If sex is not provided, and t he patient is fema le, multiply by 0.7 42. Results for pat ients <18 years of ag e have not been validated by th e MDRD study and should be interpreted wit h caution. eGFR R esult Interpretation: eGFR > or = 60 is in the Normal RangeeGF R < 60 may mean kid [place] diseaseeGFR < 1 5 may mean kidney failure Rang es recommended by the National Kidney Foundation, http://nkdep.ni h.gov eGFR Non-AA (test >60.00 N eGFR (estella mated code = eGFR Non-AA) mL/min/1.73 m2 Glomer ular Filtration Rate ) is an estimated va lue, calculated from the patient's serum creatinine usin g the MDRD equation. It is NOT the patient 's actual GFR. The eGFR provides a more clinically usef ul measure of kidn ey disease than se rum creatinine alone.This calculation george es sex and race in to account, if the information is provided. If th e race is not provided, and t he patient is -Angie n, multiply by 1.2 12. If sex is not provided, and t he patient is fema le, multiply by 0.7 42. Results for pat ients <18 years of ag e have not been validated by th e MDRD study and should be interpreted wit h caution. eGFR R esult Interpretation: eGFR > or = 60 is in the Normal RangeeGF R < 60 may mean kid [place] diseaseeGFR < 1 5 may mean kidney failure Rang es recommended by the National Kidney Foundation, http://nkdep.ni h.gov Lipid [id number] 07:21:57 Test Item Value Reference Range Interpretation Comments Cholesterol Total 214 mg/dL 0-200 H RISK OF HE ART (test code = DISEASEPublishe d by Cholesterol Total) [place] [employer] Rolanda lyte Optimal Borderl ine Increased RiskC HOL <200 200-239 >2 40TRIG <150 150-199 >2 00HDL Male >60 <40H DL Female >60 <5 0LDL <100 130-159 >1 60LDL Near optimal is 100-129 Triglycerides (test 117 mg/dL 9-200 code = Triglycerides) HDL (test code = HDL) 49 mg/dL 40-60 LDL (test code = LDL) 142 mg/dL 0-130 H The eq uation being used in this calcula tion is LDL = (Chol - H DL) - (Trig / 5) VLDL (test code = 23 mg/dL 5-40 The equati on being used VLDL) in this calcula tion is VLDL = Trig / 5 Chol/HDL (test code = 4.4 ratio 0.0-5.0 Chol/HDL) LDL/HDL Ratio (test 3 N The equa tion being used code = LDL/HDL Ratio) in thi s calculation is LDL/HDL Ratio=L DL Calc/HDL Chol RPR [id number] 12:38:23 Test Item Value Reference Range Interpretation Comments RPR Qual (test code = RPR Qual) Non-Reactive Non-Reactive Reactive Control (test code = Reactive Reactive Control) Weak Reactive Control (test Weak Reactive code = Weak Reactive Control) Non-Reactive Control (test code Non-Reactive = Non-Reactive Control) Lot # (test code = Lot #) [id number] N Expiration Dt (test code = 09-25-20 N Expiration Dt) Thyroid Stimulating [id number] 07:40:29 Test Item Value Reference Range Interpretation Comments TSH (test code = TSH) 0.865 mIU/mL 0.270-4.200 Lipid [id number] 07:34:39 Test Item Value Reference Range Interpretation Comments Cholesterol Total 216 mg/dL 0-200 H RISK OF HE ART (test code = DISEASEPublishe d by Cholesterol Total) [place] [employer] Rolanda lyte Optimal Borderl ine Increased RiskC HOL <200 200-239 >2 40TRIG <150 150-199 >2 00HDL Male >60 <40H DL Female >60 <5 0LDL <100 130-159 >1 60LDL Near optimal is 100-129 Triglycerides (test 95 mg/dL 9-200 code = Triglycerides) HDL (test code = HDL) 51 mg/dL 40-60 LDL (test code = LDL) 146 mg/dL 0-130 H The eq uation being used in this calcula tion is LDL = (Chol - H DL) - (Trig / 5) VLDL (test code = 19 mg/dL 5-40 The equati on being used VLDL) in this calcula tion is VLDL = Trig / 5 Chol/HDL (test code = 4.2 ratio 0.0-5.0 Chol/HDL) LDL/HDL Ratio (test 3 N The equa tion being used code = LDL/HDL Ratio) in thi s calculation is LDL/HDL Ratio=L DL Calc/HDL Chol CT HEAD W/O [id number] 15:00:08er 4Procedure: CT HEAD W/O CONTRASTOrder date: 05/10/2019 2:22 PMOrdering Provider: OCTAVIO GARCIAClinical Indication: Headache after injuryComparison: NoneTechnique: Using a helical scanner, sequential axial imaging of the brain wasobtained without the administration of intravenous contrast. The exam wasobtained from the skull base to vertex.This exam was performed according to the our departmental dose- optimizationprogram which includes automated exposure control, adjustment of the mA and/orkVaccording to patient size and/or use of iterative [...]
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
--- NOTE | 2021-07-19 21:13 | RAD REPORT ---
EXAM DESCRIPTION: RAD - Foot Right 3 View - 07/19/2021 9:01 pm CLINICAL HISTORY: PAIN COMPARISON: FOOT W OBLIQUES dated 07/20/2009 FINDINGS: No right foot fracture malalignment. No focal degenerative changes per IMPRESSION: No acute osseus abnormality involving the right foot.
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
[2021-07-19 22:56] VITALS: BP 109/76; TEMP 98.1; O2SAT 100
== END 2021-07-19 22:50 | disposition left against medical advice (07) ==
LOC: ER 19:20
DX: Z53.21 Procedure and treatment not carried out due to patient leaving prior to being seen by health care provider (principal)
CPT/HCPCS: 70450; 70486; 72125; 76377; 99283